=== PATIENT | female | born 1995 | race Caucasian/White ===

== ENCOUNTER 2016-10-18 21:56 | Emergency (ER) | payer SELFPAY ==
[~2016-10-18] VITALS: Ht 167.6 cm; Wt 111.5 kg
[2016-10-18 22:30] VITALS: BP 102/78
== END 2016-10-19 00:11 | disposition home or self-care (01) ==
LOC: EME 21:56
DX: O26.91 Pregnancy related conditions, unspecified, first trimester (principal)
CPT/HCPCS: 84702; 99281; 99283

== ENCOUNTER 2017-02-12 20:52 | Emergency (ER) | payer OTHER ==
[~2017-02-12] VITALS: Ht 167.6 cm; Wt 113.6 kg
[2017-02-12 22:07] VITALS: BP 127/87
== END 2017-02-12 22:07 | disposition home or self-care (01) ==
LOC: EXP 20:52 → EME 20:52 → EXP 22:07
DX: O99.512 Diseases of the respiratory system complicating pregnancy, second trimester (principal); J06.9 Acute upper respiratory infection, unspecified; Z3A.23 23 weeks gestation of pregnancy
CPT/HCPCS: 87651 90; 99281; 99283